=== PATIENT | male | born 1995 | race Caucasian/White ===

== ENCOUNTER 2017-06-07 21:40 | Emergency (ER) | payer MEDICAID ==
[2017-06-07] MEDS ORDERED: Ondansetron 4 MG/2 ML SDV IVPUSH ONE (22:24)
[2017-06-07] MEDS ORDERED: Sodium Chloride 0.9% 1,000 ML IV SCH (22:30)
--- NOTE | 2017-06-07 23:42 | EDM.PDOC ---
ED HPI GENERAL MEDICAL PROBLEM - General Chief Complaint: Gastrointestinal Problem Stated Complaint: ILLNESS Time Seen by Provider: 06/07/17 21:42 Source of Information: Reports: Patient, Family History Limitations: Reports: No Limitations - History of Present Illness INITIAL COMMENTS - FREE TEXT/NARRATIVE: nausea, vomiting and diarrhea; this is a 22 year old male who was well until this morning, when he experienced nausea, frequent vomiting and one diarrhea stool. Reports he ate out last evening, had a brisket BLT, went home, then started to feel not well during the night. no chronic illness, no chronic medication Onset: Today, Gradual Duration: Constant Location: Reports: Generalized Quality: Reports: Other (vomiting, body aches, feeling of hot and cold.) Improves with: Reports: None Associated Symptoms: Reports: Fever/Chills, Malaise, Nausea/Vomiting, Weakness - Related Data Allergies Allergy/AdvReac Type Severity Reaction Status Date / Time No Known Allergies Allergy Verified 06/07/17 21:57 Home Meds: Home Meds NK [No Known Home Meds] 06/07/17 [History] Social & Family History - Tobacco Use Smoking Status *Q: Current Every Day Smoker Years of Tobacco use: 6 Packs/Tins Daily: 1 - Caffeine Use Caffeine Use: Reports: Coffee, Energy Drinks - Alcohol Use Days Per Week of Alcohol Use: 6 Number of Drinks Per Day: 2 Total Drinks Per Week: 12 Date of Last Drink: 06/06/17 Time of Last Drink: 22:00 - Recreational Drug Use Recreational Drug Use: No - Living Situation & Occupation Living situation: Reports: with Significant Other Occupation: Employed (cook at [employer], 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 ) ED ROS GENERAL - Review of Systems Review Of Systems: See Below Constitutional: Reports: Fever, Chills, Malaise, Weakness, Decreased Appetite HEENT: Reports: No Symptoms Respiratory: Reports: No Symptoms Cardiovascular: Reports: No Symptoms Endocrine: Reports: No Symptoms GI/Abdominal: Reports: Diarrhea, Nausea, Vomiting : Reports: No Symptoms Musculoskeletal: Reports: Muscle Pain, Muscle Stiffness Skin: Reports: No Symptoms Neurological: Reports: No Symptoms Psychiatric: Reports: No Symptoms Hematologic/Lymphatic: Reports: No Symptoms Immunologic: Reports: No Symptoms ED EXAM, GI/ABD - Physical Exam Exam: See Below Exam Limited By: No Limitations General Appearance: Alert, WD/WN, No Apparent Distress Eyes: Bilateral: Normal Appearance Ears: Normal External Exam, Normal Canal, Hearing Grossly Normal, Normal TMs Nose: Normal Inspection, Normal Mucosa, No Blood Throat/Mouth: Normal Lips, Normal Teeth, Normal Gums, Normal Voice, No Airway Compromise, Other (tonsils are large, red, pitted. no exudate is noted) Head: Atraumatic, Normocephalic Neck: Normal Inspection, Supple, Non-Tender, Full Range of Motion Respiratory/Chest: No Respiratory Distress, Lungs Clear, Normal Breath Sounds, No Accessory Muscle Use, Chest Non-Tender Cardiovascular: Normal Peripheral Pulses, Regular Rate, Rhythm, No Edema, No Gallop, No JVD, No Murmur, No Rub GI/Abdominal Exam: Normal Bowel Sounds, Soft, Non-Tender, No Organomegaly, No Distention, No Abnormal Bruit, No Mass, Pelvis Stable (Male) Exam: Deferred Rectal (Males) Exam: Deferred Back Exam: Normal Inspection, Full Range of Motion Extremities: Normal Inspection, Normal Range of Motion, Non-Tender, No Pedal Edema, Normal Capillary Refill Neurological: Alert, Oriented, Normal Gait, Normal Reflexes, No Motor/Sensory Deficits Psychiatric: Normal Affect, Normal Mood Skin Exam: Warm, Dry, Intact, Normal Color, No Rash Lymphatic: No Adenopathy Course - Vital Signs Last Recorded V/S: Last Vital Signs Temp 36.3 C 06/07/17 21:54 Pulse 81 06/07/17 21:54 Resp 18 06/07/17 21:54 BP 129/72 06/07/17 21:54 Pulse Ox 100 06/07/17 21:54 - Orders/Labs/Meds Orders: Active Orders 24 hr Category Date Time Status CULTURE STREP A CONFIRMATION [RM] Stat Lab 06/07/17 22:40 Results STREP SCRN A RAPID W CULT CONF [RM] Stat Lab 06/07/17 22:40 Results Labs: Laboratory Tests 06/07/17 06/07/17 Range/Units 22:23 22:30 WBC 13.3 H (4.5-11.0) K/uL RBC 5.33 (4.30-5.90) M/uL Hgb 16.2 H (12.0-15.0) g/dL Hct 48.3 (40.0-54.0) % MCV 91 (80-98) fL MCH 30 (27-31) pg MCHC 34 (32-36) % Plt Count 203 (150-400) K/uL Neut % (Auto) 88 H (36-66) % Lymph % (Auto) 8 L (24-44) % [place] % (Auto) 4 (2-6) % Eos % (Auto) 0 L (2-4) % Baso % (Auto) 0 (0-1) % Sodium 145 (140-148) mmol/L Potassium 4.5 (3.6-5.2) mmol/L Chloride 106 (100-108) mmol/L Carbon Dioxide 29 (21-32) mmol/L Anion Gap 10.3 (5.0-14.0) mmol/L BUN 19 H (7-18) mg/dL Creatinine 0.8 (0.8-1.3) mg/dL Est Cr Clr Drug Dosing 141.31 mL/min Estimated GFR (MDRD) > 60 (>60) Glucose 93 (74-106) mg/dL Calcium 8.3 L (8.5-10.1) mg/dL Meds: Medications Discontinued Medications Generic Name Dose Route Start Last Admin Trade Name Freq PRN Reason Stop Dose Admin Sodium Chloride 1,000 mls @ 999 mls/hr 06/07/17 22:30 06/07/17 22:38 Normal Saline IV 999 mls/hr ASDIRECTED GAVIN Administration Ondansetron HCl 4 mg 06/07/17 22:24 06/07/17 22:39 Zofran IVPUSH 06/07/17 22:25 4 mg ONETIME ONE Administration - Re-Assessments/Exams Free Text/Narrative Re-Assessment/Exam: 06/07/17 dx; gastroenteritis with dehydration -in ER given one liter IV fluids, Zofran 4mg IV; improved, ready for discharge -unable to void, due to "just can't", but reports urine is a yellow color. discharge to home with Girlfriend. sick slip for 3 days given. Departure - Departure Time of Disposition: 23:49 Disposition: Home, Self-Care 01 Condition: Good Clinical Impression: Gastroenteritis - Discharge Information Instructions: Dehydration, Adult, [id number], Food Poisoning, [id number] Referrals: PCP,None [Primary Care Provider] - Forms: ED Department Discharge Care Plan Goals: Gastroenteritis with dehydration -continue Zofran 4mg odt every 8 hours as needed for nausea, vomiting -push fluids -rest -follow up with Primary Care for recheck in 3 days if not improved. -return to ER if has increased pain,fever, chills, nausea, vomiting,diarrhea or not improved work slip for no work x 3 days or until symptom free x 24 hours - Problem List & Annotations (1) Gastroenteritis SNOMED Code(s): 72326619 Code(s): K52.9 - NONINFECTIVE GASTROENTERITIS AND COLITIS, UNSPECIFIED Status: Acute Priority: High - Problem List Review Problem List Initiated/Reviewed/Updated: Yes - My Orders Last 24 Hours: My Active Orders 06/07/17 22:40 CULTURE STREP A CONFIRMATION [RM] Stat STREP SCRN A RAPID W CULT CONF [RM] Stat - Assessment/Plan Last 24 Hours: My Active Orders 06/07/17 22:40 CULTURE STREP A CONFIRMATION [RM] Stat STREP SCRN A RAPID W CULT CONF [RM] Stat Plan: Gastroenteritis with dehydration -continue Zofran 4mg odt every 8 hours as needed for nausea, vomiting -push fluids -rest -follow up with Primary Care for recheck in 3 days if not improved. -return to ER if has increased pain,fever, chills, nausea, vomiting,diarrhea or not improved work slip for no work x 3 days or until symptom free x 24 hours
== END 2017-06-07 23:49 | disposition home or self-care (01) ==
LOC: JP.ED 21:40
DX: K52.9 Noninfective gastroenteritis and colitis, unspecified (principal); F17.210 Nicotine dependence, cigarettes, uncomplicated
CPT/HCPCS: 36415; 80048; 85025; 87081; 87430; 96361; 96374; 99284; J2405; J7040

== ENCOUNTER 2019-03-29 22:12 | Emergency (ER) | payer MEDICAID ==
[2019-03-29] MEDS ORDERED: Bacitracin Oint 1 GM U/D Packet TOP ONE (22:26)
[2019-03-29] MEDS ORDERED: Diphtheria,Pertussis(Acell),Tetanus Vaccine 0.5 ML SDV IM ONE (23:13)
--- NOTE | 2019-03-29 23:19 | EDM.PDOC ---
ED HPI GENERAL MEDICAL PROBLEM - General Chief Complaint: Laceration Stated Complaint: CUT RIGHT THUMB Time Seen by Provider: 03/29/19 22:25 Source of Information: Reports: Patient, Family (S.O at bedside) History Limitations: Reports: No Limitations - History of Present Illness INITIAL COMMENTS - FREE TEXT/NARRATIVE: Right thumb injury This is a 23 year old male presents to ER with his SO, reports cleaning the house, getting a candle moved slipped dropped the candle perez which broke and puncture the right thumb. He is unable to bend his thumb. no other injury. He is left hand dominant Onset: Sudden Duration: Hour(s): Location: Reports: Upper Extremity, Right Quality: Reports: Ache Severity: Mild Improves with: Reports: Immobilization Worsens with: Reports: Movement Context: Reports: Other (broken glass ) Associated Symptoms: Reports: No Other Symptoms Treatments EDUCATION OFFICER: Reports: Dressing(s) right thumb Pain Score (Numeric/FACES): 3 - Related Data Allergies Allergy/AdvReac Type Severity Reaction Status Date / Time nickel Allergy Rash Verified 03/29/19 22:51 shrimp Allergy Itching Verified 03/29/19 22:51 Home Meds: Home Meds NK [No Known Home Meds] 06/07/17 [History] Past Medical History - Past Health History Medical/Surgical History: Denies Medical/Surgical History Social & Family History - Tobacco Use Smoking Status *Q: Current Every Day Smoker Years of Tobacco use: 7 Packs/Tins Daily: 1 - Caffeine Use Caffeine Use: Reports: Coffee, Energy Drinks, Soda - Alcohol Use Days Per Week of Alcohol Use: 1 Number of Drinks Per Day: 2 Total Drinks Per Week: 2 - Recreational Drug Use Recreational Drug Use: No - Living Situation & Occupation Living situation: Reports: with Significant Other 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 ) ED ROS GENERAL - Review of Systems Review Of Systems: See Below Constitutional: Reports: No Symptoms Musculoskeletal: Reports: Other (right thumb injury involving tendon) Skin: Reports: Wound Neurological: Reports: No Symptoms Psychiatric: Reports: No Symptoms Hematologic/Lymphatic: Reports: No Symptoms Immunologic: Reports: No Symptoms ED EXAM, SKIN/RASH Exam: See Below Exam Limited By: No Limitations General Appearance: Alert, WD/WN, No Apparent Distress Skin: Warm, Dry, Wound/Incision (palmar right thumb unable to flex distal phalanx. .5 cm puncture wound noted without active bleeding. ) Location, Skin: Upper Extremity, Right Characteristics: Other (laceration) Associated features: Warmth Lymphatic: No Adenopathy Course - Vital Signs Last Recorded V/S: Last Vital Signs Temp 36.0 C 03/29/19 22:54 Pulse 86 03/29/19 22:54 Resp 16 03/29/19 22:54 BP 145/87 H 03/29/19 22:54 Pulse Ox 97 03/29/19 22:54 - Orders/Labs/Meds Orders: Active Orders 24 hr Category Date Time Status Vaccines to be Administered [RC] PER UNIT ROUTINE Care 03/29/19 23:14 Active Meds: Medications Discontinued Medications Generic Name Dose Route Start Last Admin Trade Name Ortegaq PRN Reason Stop Dose Admin Bacitracin 1 dose 03/29/19 22:26 03/29/19 23:20 Bacitracin Oint 1 Gm TOP 03/29/19 22:27 Not Given ONETIME ONE Diphtheria/Tetanus/Acell Pertussis 0.5 ml 03/29/19 23:13 03/29/19 23:20 Adacel IM 03/29/19 23:14 0.5 ml .ONCE ONE Administration Lidocaine HCl 5 ml 03/29/19 22:26 03/29/19 23:20 Xylocaine-Mpf 1% INJECT 03/29/19 22:27 Not Given ONETIME ONE - Re-Assessments/Exams Free Text/Narrative Re-Assessment/Exam: right thumb injury with tendon involvement -consult with Dr. Molina, Orthopedic Surgeon Plan -steri strip wound -apply bandage -splint -call Orthopedic Clinic in [place] for evaluation tomorrow. Patient verbalized understanding of instructions Departure - Departure Time of Disposition: 23:14 Disposition: Home, Self-Care 01 Condition: Good Clinical Impression: Puncture wound - injury, Injury of tendon of thumb - Discharge Information *PRESCRIPTION DRUG MONITORING PROGRAM REVIEWED*: Not Applicable *COPY OF PRESCRIPTION DRUG MONITORING REPORT IN PATIENT LUAN: Not Applicable Instructions: Laceration Care, Adult, [id number] Referrals: PCP,None [Primary Care Provider] - Forms: ED Department Discharge, ED Return to Work/School Form Care Plan Goals: Right thumb puncture wound with tendon injury -steri strip and bandage -thumb splint -follow up with Dr. Molina, Orthopedic Surgeon in am -take Tylenol or Motrin as directed for pain control -work slip given for day off follow up in morning with Orthopedic Clinic on - Problem List & Annotations (1) Injury of tendon of thumb SNOMED Code(s): 556242911, [id number] Code(s): MIQ1725 - Status: Acute Priority: High (2) Puncture wound - injury SNOMED Code(s): 910371860 Code(s): T14.8XXA - OTHER INJURY OF UNSPECIFIED BODY REGION, INITIAL ENCOUNTER Status: Acute Priority: High - Problem List Review Problem List Initiated/Reviewed/Updated: Yes - My Orders Last 24 Hours: My Active Orders 03/29/19 23:14 Vaccines to be Administered [RC] PER UNIT ROUTINE - Assessment/Plan Last 24 Hours: My Active Orders 03/29/19 23:14 Vaccines to be Administered [RC] PER UNIT ROUTINE Plan: Right thumb puncture wound with tendon injury -Tdap IM given in ER -steri strip and bandage -thumb splint -follow up with Dr. Molina, Orthopedic Surgeon in am -take Tylenol or Motrin as directed for pain control -work slip given for day off follow up in morning with Orthopedic Clinic on
== END 2019-03-29 23:28 | disposition home or self-care (01) ==
LOC: JP.ED 22:12
DX: S61.031A Puncture wound without foreign body of right thumb without damage to nail, initial encounter (principal); F17.210 Nicotine dependence, cigarettes, uncomplicated; Z91.048 Other nonmedicinal substance allergy status; Z91.013 Allergy to seafood; Z23 Encounter for immunization; W25.XXXA Contact with sharp glass, initial encounter
CPT/HCPCS: 90471; 90715; 99282; 99283

== ENCOUNTER 2020-01-25 06:46 | Day surgery (SDC) | payer BC, MEDICAID ==
[2020-01-25] MEDS ORDERED: Midazolam 1 MG/ML 2 ML SDV ONE (07:17)
[2020-01-25] MEDS ORDERED: Propofol 200 MG/20 ML SDV ONE ×2 (07:17→08:17)
[2020-01-25] MEDS ORDERED: fentaNYL 100 MCG/2 ML SDV ONE (07:17)
[2020-01-25] MEDS ORDERED: Sodium Chloride 0.9% 1,000 ML IV SCH (07:45)
--- NOTE | 2020-01-25 13:41 | OR ---
DATE OF PROCEDURE: 01/25/2020 SURGEON: Tyrel Oliveira MD PROCEDURE: 1. EGD. 2. Colonoscopy. FINDINGS: 1. Small superficial tear at the 12 o'clock position directly superior to the rectum, approximately 1 cm from the rectum. 2. Inflammation in distal antrum consistent with a healing gastric ulcer. Biopsies performed; duodenum, antrum, cecal, ileum, and rectum. PREOPERATIVE DIAGNOSIS: Concern for Crohn's disease requiring biopsies. POSTOPERATIVE DIAGNOSIS: Concern for Crohn's disease requiring biopsies. RISKS: Risks, benefits, alternatives, and limitations including, but not limited to, infection, bleeding, and perforation were explained to the patient, who wished to proceed. PROCEDURE IN DETAIL: The patient was placed in supine position. The EGD scope was introduced and advanced atraumatically to the second part of the duodenum. The duodenum itself did not show evidence of Crohn's disease, except for a very mild inflammation. This was biopsied multiple times using cold biopsy forceps. In the gastric antrum, immediately at the junction of the duodenum, there is an area consistent with healing gastric ulcer. This was biopsied proximally for H. pylori. On retroflex, there was no hiatal hernia. The GE junction was normal. The remainder of the stomach and esophagus were normal. A digital rectal exam was performed next. The patient, at the 12 o'clock position, did have an approximately 3 mm soft tissue tear. This was actually greater than 1 cm away from the anus/rectum. There was no evidence of fistulization. No evidence of abscess formation. The scope was introduced and advanced atraumatically to the ileocecal valve. The ileocecal valve was then cannulated and ileal biopsies were performed. The scope was then brought back through the ascending, transverse, descending colon, and retroflexed. Random biopsies of the cecum and rectum were performed for Crohn's disease evaluation. The patient did have diverticulosis with only a limited amount of this without evidence of diverticulitis or bleeding. No abnormalities on retroflexion. The patient tolerated the procedure well. Tyrel Oliveira MD /[id number]
== END 2020-01-25 09:51 | disposition home or self-care (01) ==
LOC: JP.SDS 06:46
PROVIDERS: ATTEND Surgery
DX: K62.89 Other specified diseases of anus and rectum (principal); S36.63XA Laceration of rectum, initial encounter; K57.30 Diverticulosis of large intestine without perforation or abscess without bleeding; F17.200 Nicotine dependence, unspecified, uncomplicated; E66.9 Obesity, unspecified; Z88.8 Allergy status to other drugs, medicaments and biological substances; Z68.36 Body mass index [BMI] 36.0-36.9, adult; X58.XXXA Exposure to other specified factors, initial encounter
CPT/HCPCS: 43239; 45380; 88305; J2250; J2704; J3010; J7030